=== PATIENT | male | born 1970 | race Caucasian/White ===

== ENCOUNTER 2018-03-09 16:18 | Emergency (ER) | payer BC, MEDICAID ==
--- NOTE | 2018-03-09 17:02 | EDM.PDOC ---
ED HPI GENERAL MEDICAL PROBLEM - General Chief Complaint: Cardiovascular Problem Stated Complaint: A-FIB? Time Seen by Provider: 03/09/18 16:45 Source of Information: Reports: Patient History Limitations: Reports: No Limitations - History of Present Illness INITIAL COMMENTS - FREE TEXT/NARRATIVE: 47-year-old male who is healthy has been feeling intermittent palpitations over the past 2 weeks. No chest pain or shortness of breath. He occasionally feels like he has to take a deep breath, but it's not persistent. Today the palpitations felt more persistent so he came in to have it checked out. He is now asymptomatic and in a normal sinus rhythm. He exercises regularly including running, does not get chest pain while exercising. Onset: Other (Symptoms started about 2 weeks ago but it has been worsening) Associated Symptoms: Reports: No Other Symptoms - Related Data Allergies Allergy/AdvReac Type Severity Reaction Status Date / Time No Known Allergies Allergy Verified 03/09/18 16:36 Home Meds: Home Meds NK [No Known Home Meds] 03/09/18 [History] Past Medical History Neurological History: Reports: Concussion - Infectious Disease History Infectious Disease History: Reports: Chicken Pox - Past Surgical History GI Surgical History: Reports: Hernia, Inguinal Social & Family History - Tobacco Use Smoking Status *Q: Never Smoker - Caffeine Use Caffeine Use: Reports: Soda - Recreational Drug Use Recreational Drug Use: No ED ROS GENERAL - Review of Systems Review Of Systems: See Below Constitutional: Reports: No Symptoms Respiratory: Denies: Shortness of Breath Cardiovascular: Reports: Palpitations GI/Abdominal: Denies: Nausea, Vomiting Neurological: Reports: No Symptoms ED EXAM, GENERAL - Physical Exam Exam: See Below Exam Limited By: No Limitations General Appearance: Alert, No Apparent Distress Head: Atraumatic Respiratory/Chest: No Respiratory Distress, Lungs Clear Cardiovascular: Regular Rate, Rhythm. No: Extra Beats Extremities: Normal Inspection. No: Pedal Edema Neurological: Alert, Oriented Psychiatric: Normal Affect, Normal Mood Skin Exam: Warm, Dry Course - Vital Signs Last Recorded V/S: Last Vital Signs Temp 96.1 F 03/09/18 16:47 Pulse 53 L 03/09/18 17:40 Resp 14 03/09/18 17:40 BP 150/88 H 03/09/18 17:40 Pulse Ox 97 03/09/18 17:40 - Orders/Labs/Meds Labs: Laboratory Tests 03/09/18 03/09/18 Range/Units 16:57 16:57 WBC 5.5 (4.5-11.0) K/uL RBC 4.82 (4.30-5.90) M/uL Hgb 14.2 (12.0-15.0) g/dL Hct 41.5 (40.0-54.0) % MCV 86 (80-98) fL MCH 30 (27-31) pg MCHC 34 (32-36) % Plt Count 267 (150-400) K/uL Neut % (Auto) 59 (36-66) % Lymph % (Auto) 32 (24-44) % [place] % (Auto) 7 H (2-6) % Eos % (Auto) 2 (2-4) % Baso % (Auto) 0 (0-1) % Sodium 140 (140-148) mmol/L Potassium 3.6 (3.6-5.2) mmol/L Chloride 105 (100-108) mmol/L Carbon Dioxide 27 (21-32) mmol/L Anion Gap 8.4 (5.0-14.0) mmol/L BUN 15 (7-18) mg/dL Creatinine 1.0 (0.8-1.3) mg/dL Est Cr Clr Drug Dosing TNP Estimated GFR (MDRD) > 60 (>60) Glucose 102 (74-106) mg/dL Calcium 8.7 (8.5-10.1) mg/dL Total Bilirubin 0.6 (0.2-1.0) mg/dL AST 31 (15-37) U/L ALT 53 (12-78) U/L Alkaline Phosphatase 41 L (46-116) U/L Total Protein 7.1 (6.4-8.2) g/dL Albumin 3.6 (3.4-5.0) g/dL Globulin 3.5 (2.3-3.5) g/dL Albumin/Globulin Ratio 1.0 L (1.2-2.2) TSH, Ultra Sensitive 2.730 (0.358-3.740) uIU/mL - Re-Assessments/Exams Free Text/Narrative Re-Assessment/Exam: 03/09/18 17:02 Patient remained in sinus rhythm for the first half hour in the emergency room. No ectopic beats were seen. A CBC CMP and TSH were drawn and the patient was kept on monitoring. 03/09/18 18:06 Labs returned reassuring. TSH was normal. Just prior to discharge after being on the monitor for 1 hour, the patient did start developing fairly frequent PVCs. They were symptomatic. Copies of the labs were given to the patient, and he is going to discuss with his primary provider whether further workup is needed such as Holter monitoring, stress testing or echocardiogram. He can return sooner if worsening such as very persistent arrhythmia, chest pain or shortness of breath. Departure - Departure Time of Disposition: 18:25 Disposition: Home, Self-Care 01 Condition: Good Clinical Impression: Palpitations Instructions: Premature Ventricular Contraction Referrals: PCP,None [Primary Care Provider] - Forms: ED Department Discharge Care Plan Goals: Continue current activity as tolerated. Return if worsening such as chest pain, shortness of breath or other concerns. Discuss with your primary provider whether further workup is indicated such as Holter monitoring, stress testing or echocardiogram.
== END 2018-03-09 18:20 | disposition home or self-care (01) ==
LOC: JP.ED 16:18
DX: R00.2 Palpitations (principal)
CPT/HCPCS: 36415; 80053; 84443; 85025; 99285